=== PATIENT | female | born 1955 | race Two or more races ===

== ENCOUNTER → 2025-01-11 | Outpatient (CLI) | payer MEDICARE, SELFPAY ==
--- NOTE | 2025-01-11 08:45 | XR_ITS ---
Examination: Abdomen sonogram, complete Date and time of exam: January 11, 2025, 0909 hours INDICATIONS: Abnormal liver function tests on laboratory examination this month, epigastric pain one year.. Technique: Multiple real-time grayscale transabdominal sonographic images of the abdomen have been obtained. Findings: Absent gallbladder Common bile duct 0.6 cm no stones Pancreatic head 2.2 cm Aorta not enlarged. Liver 13.8 cm fatty infiltration no focal liver lesions Normal hepatopedal portal venous flow Patent IVC Right kidney 9.1 cm cortex 1.6 cm Left kidney 11.5 cm cortex 1.5 cm No hydronephrosis or renal calculi Spleen 8.0 cm IMPRESSION: Absent gallbladder No common bile duct stones Bilateral renal cortical thinning No hydronephrosis
== END | disposition home or self-care (01) ==
LOC: CDIM 08:53
DX: Z90.49 Acquired absence of other specified parts of digestive tract (principal); N28.89 Other specified disorders of kidney and ureter
CPT/HCPCS: 76700